=== PATIENT | female | born 1970 | race Caucasian/White ===

== ENCOUNTER 2016-12-07 21:30 | Emergency (ER) | payer BC, MEDICARE ==
--- NOTE | 2016-12-07 21:47 | EDM.PDOC ---
ED HPI GENERAL MEDICAL PROBLEM - General Chief Complaint: Chest Pain Stated Complaint: CHEST PAIN Time Seen by Provider: 12/07/16 21:46 - History of Present Illness INITIAL COMMENTS - FREE TEXT/NARRATIVE: 46-year-old female presents emergency room with chest discomfort. Patient has had this on-and-off for the last 2 weeks. It seems to be getting worse at this time some pain down into her left arm it is not associated with any diaphoresis nausea vomiting or breathing difficulties. Patient had a similar episode like this back in July ultimately she was treated for dyspepsia and did okay she's been off her heartburn medication for several months. She is no prior study of coronary artery disease she has aunts and uncles with coronary disease no primary relatives with coronary artery disease. Mid-Sternal Chest Pain Score (Numeric/FACES): 6 - Related Data Allergies Allergy/AdvReac Type Severity Reaction Status Date / Time No Known Allergies Allergy Verified 07/28/16 09:50 Home Meds: Home Meds Levothyroxine Sodium [Synthroid] 113 mcg PO DAILY 07/25/15 [History] Pravastatin [Pravachol] 10 mg PO BEDTIME 07/25/15 [History] traZODone 50 mg PO BEDTIME 07/25/15 [History] Omeprazole Magnesium [Prilosec Otc] 20 mg PO Q24H #30 tablet. 12/08/16 [Rx] Sucralfate [Carafate] 1 gm PO QIDACANDBED #28 tablet 12/08/16 [Rx] Past Medical History Cardiovascular History: Reports: High Cholesterol, Hypertension Endocrine/Metabolic History: Reports: Hyperthyroidism - Past Surgical History Endocrine Surgical History: Reports: Thyroidectomy Social & Family History - Tobacco Use Smoking Status *Q: Former Smoker Years of Tobacco use: 20 - Caffeine Use Caffeine Use: Reports: Coffee, Energy Drinks, Soda, Tea - Alcohol Use Days Per Week of Alcohol Use: 0 - Recreational Drug Use Recreational Drug Use: No ED ROS GENERAL - Review of Systems Review Of Systems: See Below Constitutional: Reports: No Symptoms HEENT: Reports: No Symptoms Respiratory: Reports: No Symptoms Cardiovascular: Reports: Chest Pain Endocrine: Reports: No Symptoms GI/Abdominal: Reports: Abdominal Pain : Reports: No Symptoms Neurological: Reports: No Symptoms ED EXAM, GENERAL - Physical Exam Exam: See Below Exam Limited By: No Limitations General Appearance: Alert, No Apparent Distress Ears: Normal External Exam, Normal Canal, Hearing Grossly Normal, Normal TMs Nose: Normal Inspection, Normal Mucosa, No Blood Throat/Mouth: Normal Inspection, Normal Lips, Normal Gums, Normal Oropharynx, Normal Voice, No Airway Compromise Head: Atraumatic, Normocephalic Neck: Normal Inspection, Supple, Non-Tender, Full Range of Motion Respiratory/Chest: No Respiratory Distress, Lungs Clear Cardiovascular: Regular Rate, Rhythm, No Edema, No Murmur GI/Abdominal: Normal Bowel Sounds, Soft, Other (Well discomfort in the epigastric region no rebound or guarding noted) Back Exam: Normal Inspection. No: CVA Tenderness (L), CVA Tenderness (R) Extremities: Normal Inspection, No Pedal Edema Course - Vital Signs Last Recorded V/S: Last Vital Signs Temp 36.5 C 12/07/16 21:44 Pulse 69 12/07/16 21:44 Resp 14 12/07/16 21:44 BP 106/68 12/07/16 23:15 Pulse Ox 96 12/07/16 21:44 - Orders/Labs/Meds Orders: Active Orders 24 hr Category Date Time Status EKG 12 Lead [EKG Documentation Completion] [RC] STAT Care 12/07/16 21:39 Active Chest 1V Frontal [CR] Stat Exams 12/07/16 22:00 Taken Lactated Ringers [Ringers, Lactated] 1,000 ml Med 12/07/16 22:00 Active IV ASDIRECTED Medication Orders Lactated Ringer's (Ringers, Lactated) 1,000 mls @ 50 mls/hr IV ASDIRECTED PAYTON Last Admin: 12/07/16 22:41 Dose: 50 mls/hr Labs: Laboratory Tests 12/07/16 12/07/16 12/07/16 Range/Units 22:05 22:05 22:05 WBC 9.22 (3.98-10.04) K/mm3 RBC 4.20 (3.98-5.22) M/mm3 Hgb 11.2 (11.2-15.7) gm/L Hct 35.7 (34.1-44.9) % MCV 85.0 (79.4-94.8) fl MCH 26.7 (25.6-32.2) pg MCHC 31.4 L (32.2-35.5) g/dl RDW Std Deviation 51.8 H (36.4-46.3) fL Plt Count 277 (182-369) K/mm3 MPV 11.4 (9.4-12.3) fl Neutrophils % (Manual) 65 H (40-60) % Band Neutrophils % 0 (0-10) % Lymphocytes % (Manual) 30 (20-40) % Atypical Lymphs % 0 % Monocytes % (Manual) 5 (2-10) % Eosinophils % (Manual) 0 L (0.7-5.8) % Basophils % (Manual) 0 L (0.1-1.2) Platelet Estimate Adequate RBC Morph Comment Normal PT 10.0 (8.0-13.0) SECONDS INR 0.92 APTT 26 (22-36) SECONDS Sodium 141 (136-145) mEq/L Potassium 4.3 (3.5-5.1) mEq/L Chloride 107 (98-107) mEq/L Carbon Dioxide 28 (21-32) mEq/L Anion Gap 10.3 (5-15) BUN 16 (7-18) mg/dL Creatinine 1.0 (0.55-1.02) mg/dL Est Cr Clr Drug Dosing 66.51 mL/min Estimated GFR (MDRD) 60 (>60) mL/min BUN/Creatinine Ratio 16.0 (14-18) Glucose 94 (74-106) mg/dL Calcium 8.6 (8.5-10.1) mg/dL Total Bilirubin 0.1 L (0.2-1.0) mg/dL AST 14 L (15-37) U/L ALT 21 (14-59) U/L Alkaline Phosphatase 67 (46-116) U/L Troponin I < 0.017 (0.00-0.056) ng/mL Total Protein 7.3 (6.4-8.2) g/dl Albumin 3.5 (3.4-5.0) g/dl Globulin 3.8 gm/dL Albumin/Globulin Ratio 0.9 L (1-2) Meds: Medications Generic Name Dose Route Start Last Admin Trade Name Freq PRN Reason Stop Dose Admin Lactated Ringer's 1,000 mls @ 50 mls/hr 12/07/16 22:00 12/07/16 22:41 Ringers, Lactated IV 50 mls/hr ASDIRECTED PAYTON Administration Discontinued Medications Generic Name Dose Route Start Last Admin Trade Name Pavithra PRN Reason Stop Dose Admin Aspirin 324 mg 12/07/16 21:59 12/07/16 22:39 Aspirin PO 12/07/16 22:00 324 mg ONETIME ONE Administration Al Hydroxide/Mg Hydroxide 30 0 ml 12/07/16 23:22 12/07/16 23:28 ml/ Lidocaine HCl 15 ml PO 12/07/16 23:23 45 ml ONETIME ONE Administration Nitroglycerin 0.4 mg 12/07/16 21:59 12/07/16 23:15 Nitrostat SL 12/07/16 22:10 0.4 mg Q5M PRN Administration Chest Pain Pantoprazole Sodium 40 mg 12/08/16 00:14 Protonix PO 12/08/16 00:15 ONETIME ONE Sucralfate 1 gm 12/08/16 00:14 Carafate PO 12/08/16 00:15 ONETIME ONE - Re-Assessments/Exams Free Text/Narrative Re-Assessment/Exam: 12/08/16 00:12 She really had no improvement with the nitroglycerin she had good improvement with the GI cocktail. EKG is is nondiagnostic and unchanged from her prior in July of this year. Chest x-ray is normal laboratory exam is nondiagnostic troponin negative. Her heart score is 2 she does not want to stay for a second troponin, however this was offered and she would like to go home. Departure - Departure Time of Disposition: 00:14 Disposition: Home, Self-Care 01 Clinical Impression: Chest pain, Dyspepsia Prescriptions: Omeprazole Magnesium [Prilosec Otc] 20 mg PO Q24H #30 tablet.dr Riderfarobert [Carafate] 1 gm PO QIDACANDBED #28 tablet Instructions: Nonspecific Chest Pain, [id number] Referrals: Mike Bucio MD [Primary Care Provider] - Forms: ED Department Discharge Additional Instructions: Return to the emergency room with any questions or problems. Followup with your regular physician later this week to discuss benefits of getting a cardiac stress test. You been started on 2 medications for your stomach the Carafate you'll take for one week take it before meals breakfast lunch and supper, and at bedtime. Take your other medications at least an hour before or 2 hours after the Carafate. - My Orders Last 24 Hours: My Active Orders 12/07/16 21:39 EKG 12 Lead [EKG Documentation Completion] [RC] STAT 12/07/16 22:00 Chest 1V Frontal [CR] Stat Lactated Ringers [Ringers, Lactated] 1,000 ml IV ASDIRECTED - Assessment/Plan Last 24 Hours: My Active Orders 12/07/16 21:39 EKG 12 Lead [EKG Documentation Completion] [RC] STAT 12/07/16 22:00 Chest 1V Frontal [CR] Stat Lactated Ringers [Ringers, Lactated] 1,000 ml IV ASDIRECTED
[2016-12-07] MEDS ORDERED: Aspirin 81 MG Tab.Chew PO ONE (21:59)
[2016-12-07] MEDS ORDERED: Lactated Ringers 1,000 ML IV SCH (22:00)
[2016-12-07] MEDS: Nitroglycerin 0.4 MG Tab.SL SL PRN ×3 (22:41→23:15)
[2016-12-07 23:15] VITALS: BP 106/68
[2016-12-07] MEDS ORDERED: Alum Hydrox/Mag Hydrox/Simeth 30 ML, Lidocaine 2% 15 ML PO ONE ×2 (23:22)
[2016-12-08] MEDS ORDERED: Sucralfate 1 GM Tab PO ONE (00:14)
[2016-12-08] MEDS ORDERED: Pantoprazole 40 MG Tab.CR PO ONE (00:14)
[2016-12-08] MEDS ORDERED: Sucralfate Suspension 1 GM/10 ML Cup PO ONE (00:23)
--- NOTE | 2016-12-08 07:24 | CR ---
Chest: Portable view of the chest was obtained. Comparison: Previous chest x-ray 07/28/16. Heart size and mediastinum are normal. Lungs are clear. Surgical clips are noted at the base of the neck. Bony structures are grossly intact. Impression: 1. Stable chest x-ray from prior exam. Nothing acute is identified. Diagnostic code #2
== END 2016-12-08 00:30 | disposition home or self-care (01) ==
LOC: JD.ED 21:30
DX: R07.89 Other chest pain (principal); R10.13 Epigastric pain; E78.00 Pure hypercholesterolemia, unspecified; I10 Essential (primary) hypertension; E05.90 Thyrotoxicosis, unspecified without thyrotoxic crisis or storm; Z79.899 Other long term (current) drug therapy; Z90.89 Acquired absence of other organs; Z87.891 Personal history of nicotine dependence
CPT/HCPCS: 36415; 71010; 80053; 84484; 85025; 85610; 85730; 93005; 96360; 96361; 99285; A9270; J7120; 99284

== ENCOUNTER 2017-09-26 15:44 | Emergency (ER) | payer BC, MEDICARE ==
[2017-09-26 15:54] VITALS: BP 115/79
[2017-09-26] MEDS ORDERED: oxyCODONE 5 MG Tab PO ONE (16:12)
--- NOTE | 2017-09-26 16:16 | EDM.PDOC ---
ED HPI GENERAL MEDICAL PROBLEM - General Chief Complaint: ENT Problem Stated Complaint: PAIN IN LEFT EAR Time Seen by Provider: 09/26/17 15:57 Source of Information: Reports: Patient History Limitations: Reports: No Limitations - History of Present Illness INITIAL COMMENTS - FREE TEXT/NARRATIVE: 47 y/o F with L ear pain x 1 week. No injury. No q tip use, foreign body in the ear, or recent swimming. Has had swelling of the ear and severe pain. No ear discharge. No fever. No recent nasal congestion or cough or other illness. Pain is severe. left ear Pain Score (Numeric/FACES): 6 - Related Data Allergies Allergy/AdvReac Type Severity Reaction Status Date / Time No Known Allergies Allergy Verified 09/26/17 15:54 Home Meds: Home Meds Levothyroxine Sodium [Synthroid] 113 mcg PO DAILY 07/25/15 [History] Pravastatin [Pravachol] 10 mg PO BEDTIME 07/25/15 [History] traZODone 50 mg PO BEDTIME 07/25/15 [History] Ciprofloxacin/Hydrocortisone [Cipro HC Otic Susp] 3 drop OT BID 14 Days #1 bottle 09/26/17 [Rx] Clindamycin HCl 150 mg PO QID #28 capsule 09/26/17 [Rx] Past Medical History - Past Health History Medical/Surgical History: Denies Medical/Surgical History Cardiovascular History: Reports: High Cholesterol, Hypertension Endocrine/Metabolic History: Reports: Hyperthyroidism - Past Surgical History Endocrine Surgical History: Reports: Thyroidectomy Social & Family History - Family History Family Medical History: Noncontributory Cardiac: Reports: [place] - Tobacco Use Smoking Status *Q: Never Smoker Years of Tobacco use: 20 Used Tobacco, but Quit: Yes Month/Year Tobacco Last Used: 1 Second Hand Smoke Exposure: Yes - Caffeine Use Caffeine Use: Reports: Coffee - Alcohol Use Days Per Week of Alcohol Use: 0 - Recreational Drug Use Recreational Drug Use: No ED ROS ENT - Review of Systems Review Of Systems: See Below Constitutional: Denies: Fever HEENT: Reports: Ear Pain. Denies: Ear Discharge, Rhinitis Respiratory: Denies: Cough Skin: Denies: Wound Neurological: Denies: Headache ED EXAM, ENT - Physical Exam Exam: See Below Exam Limited By: No Limitations General Appearance: Alert, WD/WN, No Apparent Distress Eye Exam: Bilateral Eye: Normal Inspection Ears: Other (L ear: no mastoid tenderness or erythema. No tenderness with pinna movements. Mild erythema and swelling of the pinna at site of the external auditory canal. No discharge. External auditory canal is swollen and mildly erythematous. No visible debris in the canal. Canal swelling obscures the TM. ) Nose: Normal Inspection, Normal Mucousa, No Blood Mouth/Throat: Normal Inspection Head: Atraumatic, Normocephalic Neck: Normal Inspection, Supple Respiratory/Chest: No Respiratory Distress Neurological: Alert, Oriented, Normal Cognition Psychiatric: Normal Affect, Normal Mood Course - Vital Signs Last Recorded V/S: Last Vital Signs Temp 36.6 C 09/26/17 15:49 Pulse 73 09/26/17 15:49 Resp 18 09/26/17 15:49 BP 115/79 09/26/17 15:49 Pulse Ox 100 09/26/17 15:49 - Orders/Labs/Meds Meds: Medications Discontinued Medications Generic Name Dose Route Start Last Admin Trade Name Freq PRN Reason Stop Dose Admin Oxycodone HCl 5 mg 09/26/17 16:12 09/26/17 16:29 Oxycodone PO 09/26/17 16:13 5 mg ONETIME ONE Administration Departure - Departure Time of Disposition: 16:12 Disposition: Home, Self-Care 01 Clinical Impression: Otitis externa Qualifiers: Otitis externa type: diffuse Chronicity: acute Laterality: left Qualified Code( s): H60.312 - Diffuse otitis externa, left ear Cellulitis Qualifiers: Site of cellulitis: other site Qualified Code(s): L03.818 - Cellulitis of other sites - Discharge Information Prescriptions: Ciprofloxacin/Hydrocortisone [Cipro HC Otic Susp] 3 drop OT BID 14 Days #1 bottle Clindamycin HCl 150 mg PO QID #28 capsule Instructions: Cellulitis, Adult Referrals: PCP,None [Primary Care Provider] - Forms: ED Department Discharge Additional Instructions: 1. Take antibiotics as prescribed 2. Take aleve or ibuprofen as needed for pain. You may take acetaminophen ( Tylenol) in addition to this. 3. Follow up with your primary doctor this week or the walk in clinic if not improving 4. Return to the ED for worsening symptoms, including fever or severe pain
== END 2017-09-26 16:30 | disposition home or self-care (01) ==
LOC: JD.ED 15:44
DX: H60.312 Diffuse otitis externa, left ear (principal); H60.12 Cellulitis of left external ear; E78.00 Pure hypercholesterolemia, unspecified; E05.90 Thyrotoxicosis, unspecified without thyrotoxic crisis or storm; I10 Essential (primary) hypertension; Z79.899 Other long term (current) drug therapy
CPT/HCPCS: 99283; A9270

== ENCOUNTER 2018-01-24 20:45 | Emergency (ER) | payer BC, MEDICARE ==
[2018-01-24 21:09] VITALS: BP 133/89
--- NOTE | 2018-01-24 22:58 | EDM.PDOC ---
ED HPI GENERAL MEDICAL PROBLEM - General Chief Complaint: ENT Problem Stated Complaint: MASS ON LEFT SIDE OF THROAT Time Seen by Provider: 01/24/18 21:21 Source of Information: Reports: Patient, Family () History Limitations: Reports: No Limitations - History of Present Illness INITIAL COMMENTS - FREE TEXT/NARRATIVE: The patient states that she feels like there has been a lump in the left side of her throat for about 2 weeks, that it is painful, and getting worse. She noticed a white spot in the back of her throat tonight. No recent fever. No ear pain. No recent nausea, vomiting, constipation, or diarrhea. No prior similar symptoms. No medical evaluation for this complaint, prior to tonight. The patient's PCP is Dr. Bucio. Throat Pain Score (Numeric/FACES): 8 - Related Data Allergies Allergy/AdvReac Type Severity Reaction Status Date / Time No Known Allergies Allergy Verified 01/24/18 21:09 Home Meds: Home Meds Levothyroxine Sodium [Synthroid] 113 mcg PO DAILY 07/25/15 [History] Pravastatin [Pravachol] 10 mg PO BEDTIME 07/25/15 [History] traZODone 50 mg PO BEDTIME 07/25/15 [History] Past Medical History Cardiovascular History: Reports: High Cholesterol, Hypertension Endocrine/Metabolic History: Reports: Hypothyroidism - Past Surgical History Endocrine Surgical History: Reports: Thyroidectomy Social & Family History - Family History Family Medical History: Noncontributory Cardiac: Reports: [place] - Tobacco Use Smoking Status *Q: Former Smoker Years of Tobacco use: 27 Packs/Tins Daily: 0.5 Month/Year Tobacco Last Used: Quit 2014 - Caffeine Use Caffeine Use: Reports: None - Alcohol Use Alcohol Use History: Yes Alcohol Use Frequency: Socially - Recreational Drug Use Recreational Drug Use: No - Living Situation & Occupation Living situation: Reports: , with Spouse, with Family (Daughter, 3 grandchildren) Occupation: Unemployed ED ROS ENT - Review of Systems Review Of Systems: ROS reveals no pertinent complaints other than HPI. ED EXAM, ENT - Physical Exam Exam: See Below Exam Limited By: No Limitations General Appearance: Alert, WD/WN, No Apparent Distress Eye Exam: Bilateral Eye: EOMI, Normal Inspection Ears: Normal External Exam, Normal Canal, Hearing Grossly Normal, Normal TMs Nose: Normal Inspection, No Blood, Other (Left nostril nasal mucosa edema) Mouth/Throat: Normal Gums, Normal Lips, Normal Teeth, Other (Glossy white bulging lesion noted on the left peritonsillar oropharynx. No surrounding erythema. No oropharyngeal swelling. No uvular swelling or deviation.) Head: Atraumatic, Normocephalic Neck: Normal Inspection, Supple, Non-Tender, Full Range of Motion. No: Lymphadenopathy (L), Lymphadenopathy (R) Course - Vital Signs Last Recorded V/S: Last Vital Signs Temp 36.5 C 01/24/18 21:05 Pulse 60 01/24/18 21:05 Resp 16 01/24/18 21:05 BP 133/89 01/24/18 21:05 Pulse Ox 98 01/24/18 21:05 - Orders/Labs/Meds Orders: Active Orders 24 hr Category Date Time Status CULTURE STREP A CONFIRMATION [] Stat Lab 01/24/18 22:12 Results STREP SCRN A RAPID W CULT CONF [] Stat Lab 01/24/18 22:12 Results - Re-Assessments/Exams Free Text/Narrative Re-Assessment/Exam: 01/24/18 22:51 Test results discussed with the patient and her . The rapid strep test is negative. Based on the appearance of the white lesion on the patient's left oropharynx, with the lack of surrounding swelling or erythema to suggest an infection, and with no lymphadenopathy, I suspect that the patient has a mucous retention cyst. These are not cancerous, I do not need to be treated unless they are causing symptoms. I will refer the patient to the ENT Dr. Chun Etienne for further evaluation and potential treatment. Departure - Departure Time of Disposition: 22:52 Disposition: Home, Self-Care 01 Condition: Good Clinical Impression: Mucous retention cyst - Discharge Information *PRESCRIPTION DRUG MONITORING PROGRAM REVIEWED*: Not Applicable *COPY OF PRESCRIPTION DRUG MONITORING REPORT IN PATIENT JAIME: Not Applicable Referrals: Mike Bucio MD [Primary Care Provider] - Chun Etienne MD [Ordering Only Provider] - Forms: ED Department Discharge Additional Instructions: You were seen in the emergency room for left throat pain for the past 2 weeks, and a white lesions seen in your throat. Workup in the ER included a rapid strep test, which returned negative. Based on your history and physical examination, we suspect that you are suffering from a mucus retention cyst. Take [id number] ibuprofen, 2-3 tablets (400-600 mg) every 8 hours, with food, as needed for discomfort. Follow-up with the ENT Dr. Chun Etienne at the next available appointment. If any other problems, please do not hesitate to return to the ER. - My Orders Last 24 Hours: My Active Orders 01/24/18 22:12 CULTURE STREP A CONFIRMATION [RM] Stat STREP SCRN A RAPID W CULT CONF [RM] Stat - Assessment/Plan Last 24 Hours: My Active Orders 01/24/18 22:12 CULTURE STREP A CONFIRMATION [RM] Stat STREP SCRN A RAPID W CULT CONF [RM] Stat
== END 2018-01-24 23:01 | disposition home or self-care (01) ==
LOC: JD.ED 20:45
DX: J34.1 Cyst and mucocele of nose and nasal sinus (principal); E78.00 Pure hypercholesterolemia, unspecified; I10 Essential (primary) hypertension; E03.9 Hypothyroidism, unspecified; Z87.891 Personal history of nicotine dependence; Z79.899 Other long term (current) drug therapy
CPT/HCPCS: 87081; 87430; 99283

== ENCOUNTER 2018-07-23 17:41 | Emergency (ER) | payer BC, OTHER ==
[2018-07-23 17:54] VITALS: BP 133/95
[2018-07-23] MEDS ORDERED: Ketorolac 60 MG/2 ML SDV IM ONE (18:48)
--- NOTE | 2018-07-23 19:04 | EDM.PDOC ---
ED HPI GENERAL MEDICAL PROBLEM - General Chief Complaint: Upper Extremity Injury/Pain Stated Complaint: JOINT PAIN Time Seen by Provider: 07/23/18 18:35 Source of Information: Reports: Patient History Limitations: Reports: No Limitations - History of Present Illness INITIAL COMMENTS - FREE TEXT/NARRATIVE: 47 year old female presents for evaluation and treatment of pain to multiple joints. Reports pain for the last month to month and a half. Reports pain primarily to the left shoulder, PIP joints of the hands and low back. Denies any pain to the elbows, hips, knees or ankles. No recent fevers, chills, nausea or vomiting. No recent trauma to the joints. Has not appreciated any recent skin rashes or skin changes. No history of gout known. Patient has appreciated nodules to several PIP joints in the hands. Reports swelling in several joints and states she has not been able to wear her rings due to swelling in her fingers. Denies any erythema or increased warmth to the joints. Has not been seen for her joint pain. Has been treating pain with OTC medications but has not gotten any relief. Patient reports she is on disability for an Arnold Chiari malformation. joints Pain Score (Numeric/FACES): 5 - Related Data Allergies Allergy/AdvReac Type Severity Reaction Status Date / Time No Known Allergies Allergy Verified 01/24/18 21:09 Home Meds: Home Meds Levothyroxine Sodium [Synthroid] 125 mcg PO DAILY 07/25/15 [History] Pravastatin [Pravachol] 10 mg PO BEDTIME 07/25/15 [History] traZODone 100 mg PO BEDTIME 07/25/15 [History] predniSONE [Prednisone] 20 mg PO DAILY #11 tablet 07/23/18 [Rx] Past Medical History - Past Health History Medical/Surgical History: Denies Medical/Surgical History Cardiovascular History: Reports: High Cholesterol [employer] History: Reports: Endocrine/Metabolic History: Reports: Hypothyroidism - Past Surgical History Endocrine Surgical History: Reports: Thyroidectomy Social & Family History - Family History Family Medical History: Noncontributory Cardiac: Reports: [place] Musculoskeletal: Reports: RA Other Musculoskeletal Family History: mother-RA - Tobacco Use Smoking Status *Q: Former Smoker Used Tobacco, but Quit: Yes Month/Year Tobacco Last Used: 2015 - Caffeine Use Caffeine Use: Reports: Coffee, Soda Other Caffeine Use: rare - Recreational Drug Use Recreational Drug Use: No - Living Situation & Occupation Living situation: Reports: , with Spouse, with Family (Daughter, 3 grandchildren) Occupation: Unemployed Review of Systems - Review of Systems Review Of Systems: See Below Constitutional: Denies: Chills, Fever GI/Abdominal: Denies: Nausea, Vomiting Musculoskeletal: Reports: Back Pain (reports low back pain), Joint Pain ( multiple joints including the left shoulder and PIP joints of the hands ), Joint Swelling (mulitple joints primarily in the hands) Skin: Denies: Rash, Erythema ED EXAM, GENERAL - Physical Exam Exam: See Below Exam Limited By: No Limitations General Appearance: Alert, WD/WN, No Apparent Distress Throat/Mouth: Normal Inspection Neck: Normal Inspection Respiratory/Chest: No Respiratory Distress, Lungs Clear, Normal Breath Sounds Cardiovascular: Normal Peripheral Pulses, Regular Rate, Rhythm, No Murmur Extremities: Normal Inspection (no obvious deformities to the shoulders, knees, hands, wrist or ankles), Non-Tender, Other (bouchards nodules to several PIP joints in the left hand ). No: Increased Warmth, Redness Neurological: Alert, Oriented, Normal Cognition Psychiatric: Normal Affect, Normal Mood Skin Exam: Warm, Dry, Normal Color, No Rash. No: Increased Warmth Course - Vital Signs Last Recorded V/S: Last Vital Signs Temp 98.5 F 07/23/18 17:50 Pulse 85 07/23/18 17:50 Resp 16 07/23/18 17:50 BP 133/95 H 07/23/18 17:50 Pulse Ox 95 07/23/18 17:50 - Orders/Labs/Meds Meds: Medications Discontinued Medications Generic Name Dose Route Start Last Admin Trade Name Pavithra PRN Reason Stop Dose Admin Ketorolac Tromethamine 60 mg 07/23/18 18:48 07/23/18 18:57 Toradol IM 07/23/18 18:49 60 mg ONETIME ONE Administration - Re-Assessments/Exams Free Text/Narrative Re-Assessment/Exam: 07/23/18 18:55 Suspect arthritis causing her joint pain. Possibly RA. Reports mother has a history of RA. I see no acute joint swelling, erythema and increased warmth to the joints tonight. Nodule appreciated to the PIP joints. Will discharge home with recommendations to follow-up in the clinic for further evaluation. Discharge instructions as documented. Departure - Departure Time of Disposition: 18:55 Disposition: Home, Self-Care 01 Condition: Fair Clinical Impression: Arthritis - Discharge Information *PRESCRIPTION DRUG MONITORING PROGRAM REVIEWED*: No *COPY OF PRESCRIPTION DRUG MONITORING REPORT IN PATIENT JAIME: No Prescriptions: predniSONE [Prednisone] 20 mg PO DAILY #11 tablet Instructions: Arthritis Referrals: Mike Bucio MD [Primary Care Provider] - Forms: ED Department Discharge Additional Instructions: Follow-up with your PCP. You may require further testing such as lab work to confirm a diagnosis. Take the prednisone as prescribed. This medication will be tapered off. May take OTC aleve or tylenol as needed for pain relief in addition to the steroid. Please return to the ER should your symptoms change or worsen.
== END 2018-07-23 19:15 | disposition home or self-care (01) ==
LOC: JD.ED 17:41
DX: M19.90 Unspecified osteoarthritis, unspecified site (principal); E03.9 Hypothyroidism, unspecified; E78.00 Pure hypercholesterolemia, unspecified; Z87.891 Personal history of nicotine dependence; Z79.899 Other long term (current) drug therapy
CPT/HCPCS: 96372; 99283; J1885

== ENCOUNTER 2019-07-29 14:17 | Emergency (ER) | payer MEDICARE, OTHER ==
[2019-07-29 14:44] VITALS: BP 132/90; PULSE 67
[2019-07-29] MEDS ORDERED: Sodium Chloride 0.9% 10 ML Syringe FLUSH PRN (14:46)
[2019-07-29] MEDS ORDERED: diphenhydrAMINE 50 MG/ML SDV IVPUSH ONE (14:46)
[2019-07-29] MEDS ORDERED: Sodium Chloride 0.9% 1,000 ML IV ONE (14:46)
[2019-07-29] MEDS ORDERED: Metoclopramide 10 MG/2 ML SDV IVPUSH ONE (14:46)
--- NOTE | 2019-07-29 14:51 | EDM.PDOC ---
ED HPI GENERAL MEDICAL PROBLEM - General Chief Complaint: Headache Stated Complaint: HEADACHE Time Seen by Provider: 07/29/19 14:39 Source of Information: Reports: Patient History Limitations: Reports: No Limitations - History of Present Illness INITIAL COMMENTS - FREE TEXT/NARRATIVE: Patient is unfortunate 48-year-old female who presents emergency Department today with complaint of headache. Patient reports she has a headache that "feels like my brain is done explode". The symptoms started 3 days ago and progressively worsened since. Patient reports the pain is "similar to previous headaches". Positive nausea positive vomiting positive photophobia. Patient reports she has had cough congestion runny nose for the past week and was seen at the urgent care at the beginning of the week and was placed on Zithromax and Robitussin with codeine. Patient then had a rash and was told to discontinue the Robitussin with codeine in the Zithromax and was placed on doxycycline. Patient reports cough congestion runny nose has improved however, the headache has worsened Headache Pain Score (Numeric/FACES): 10 - Related Data Allergies Allergy/AdvReac Type Severity Reaction Status Date / Time codeine Allergy Rash Verified 07/29/19 14:44 Home Meds: Home Meds Levothyroxine Sodium [Synthroid] 125 mcg PO DAILY 07/25/15 [History] Pravastatin [Pravachol] 10 mg PO BEDTIME 07/25/15 [History] traZODone 100 mg PO BEDTIME 07/25/15 [History] predniSONE [Prednisone] 20 mg PO DAILY #11 tablet 07/23/18 [Rx] Past Medical History - Past Health History Medical/Surgical History: Denies Medical/Surgical History Cardiovascular History: Reports: High Cholesterol 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: Endocrine/Metabolic History: Reports: Hypothyroidism - Past Surgical History Endocrine Surgical History: Reports: Thyroidectomy Social & Family History - Family History Family Medical History: Noncontributory Cardiac: Reports: [place] Musculoskeletal: Reports: RA Other Musculoskeletal Family History: mother-RA - Caffeine Use Caffeine Use: Reports: Coffee, Soda Other Caffeine Use: rare - Living Situation & Occupation Living situation: Reports: , with Spouse, with Family (Daughter, 3 grandchildren) Occupation: Unemployed ED ROS GENERAL - Review of Systems Review Of Systems: See Below Constitutional: Denies: Fever, Chills HEENT: Reports: Rhinitis. Denies: Ear Pain, Throat Pain Respiratory: Reports: Cough. Denies: Shortness of Breath, Wheezing, Sputum Cardiovascular: Denies: Chest Pain GI/Abdominal: Reports: Nausea, Vomiting. Denies: Abdominal Pain Neurological: Reports: Headache. Denies: Confusion, Dizziness - Physical Exam Exam: See Below Exam Limited By: No Limitations General Appearance: Alert, WD/WN, Moderate Distress Eye Exam: Bilateral Eye: EOMI, PERRL Ears: Normal External Exam, Normal Canal, Hearing Grossly Normal, Normal TMs Head Exam: Atraumatic, Normocephalic Neck: Normal Inspection, Supple, Non-Tender, Full Range of Motion Respiratory/Chest: No Respiratory Distress, Lungs Clear, Normal Breath Sounds, No Accessory Muscle Use, Chest Non-Tender Cardiovascular: Normal Peripheral Pulses, Regular Rate, Rhythm, No Edema, No Gallop, No JVD, No Murmur, No Rub GI/Abdominal: Normal Bowel Sounds, Soft, Non-Tender, No Organomegaly, No Distention, No Abnormal Bruit, No Mass Neuro Exam (Abbreviated): Alert, Oriented, CN II-XII Intact, Normal Cognition, Normal Gait, Normal Reflexes, No Motor/Sensory Deficits Back Exam: Normal Inspection, Full Range of Motion, NT Extremities: Normal Inspection, Normal Range of Motion, Non-Tender, No Pedal Edema, Normal Capillary Refill Skin Exam: Warm, Dry Course - Vital Signs Last Recorded V/S: Last Vital Signs Temp 97.8 F 07/29/19 14:40 Pulse 67 07/29/19 14:40 Resp 16 07/29/19 14:40 BP 132/90 07/29/19 14:40 Pulse Ox 98 07/29/19 14:40 - Orders/Labs/Meds Orders: Active Orders 24 hr Category Date Time Status Sodium Chloride 0.9% [Saline Flush] Med 07/29/19 14:46 Active 10 ml FLUSH ASDIRECTED PRN Saline Lock Insert [OM.PC] Stat Oth 07/29/19 14:46 Ordered Medication Orders Sodium Chloride (Saline Flush) 10 ml FLUSH ASDIRECTED PRN PRN Reason: Keep Vein Open Last Admin: 07/29/19 14:58 Dose: 10 ml Meds: Medications Generic Name Dose Route Start Last Admin Trade Name Freq PRN Reason Stop Dose Admin Sodium Chloride 10 ml 07/29/19 14:46 07/29/19 14:58 Saline Flush FLUSH 10 ml ASDIRECTED PRN Administration Keep Vein Open Discontinued Medications Generic Name Dose Route Start Last Admin Trade Name Freq PRN Reason Stop Dose Admin Diphenhydramine HCl 25 mg 07/29/19 14:46 07/29/19 14:57 Benadryl IVPUSH 07/29/19 14:47 25 mg ONETIME ONE Administration Haloperidol Lactate 2.5 mg 07/29/19 15:13 07/29/19 15:25 Haldol IVPUSH 07/29/19 15:14 2.5 mg ONETIME ONE Administration Sodium Chloride 1,000 mls @ 1,000 mls/hr 07/29/19 14:46 07/29/19 14:56 Normal Saline IV 07/29/19 15:45 1,000 mls/hr ONETIME ONE Administration Metoclopramide HCl 10 mg 07/29/19 14:46 07/29/19 14:56 Reglan IVPUSH 07/29/19 14:47 10 mg ONETIME ONE Administration - Re-Assessments/Exams Free Text/Narrative Re-Assessment/Exam: 07/29/19 15:12 After Reglan and Benadryl patient continues to have headache, we will give Haldol to disassociate the pain Free Text/Narrative Re-Assessment/Exam: 07/29/19 15:47 Patient reports pain is resolved after Haldol will discharge to home Departure - Departure Time of Disposition: 15:47 Disposition: Home, Self-Care 01 Condition: Good, Fair Clinical Impression: Migraine - Discharge Information Referrals: Mike Bucio MD [Primary Care Provider] - Forms: ED Department Discharge Additional Instructions: Home, rest in a dark quiet room, return as needed for worsening condition Sepsis Event Note - Evaluation Sepsis Screening Result: No Definite Risk - Focused Exam Vital Signs: Vital Signs Temp Pulse Resp BP Pulse Ox 07/29/19 14:40 97.8 F 67 16 132/90 98 Date Exam was Performed: 07/29/19 Time Exam was Performed: 15:47 - My Orders Last 24 Hours: My Active Orders 07/29/19 14:46 Sodium Chloride 0.9% [Saline Flush] 10 ml FLUSH ASDIRECTED PRN Saline Lock Insert [OM.PC] Stat - Assessment/Plan Last 24 Hours: My Active Orders 07/29/19 14:46 Sodium Chloride 0.9% [Saline Flush] 10 ml FLUSH ASDIRECTED PRN Saline Lock Insert [OM.PC] Stat
[2019-07-29] MEDS ORDERED: Haloperidol Lactate 5 MG/ML SDV IVPUSH ONE (15:13)
== END 2019-07-29 15:58 | disposition home or self-care (01) ==
LOC: JD.ED 14:17
DX: G43.909 Migraine, unspecified, not intractable, without status migrainosus (principal); E78.00 Pure hypercholesterolemia, unspecified; E03.9 Hypothyroidism, unspecified; Z88.5 Allergy status to narcotic agent; Z79.899 Other long term (current) drug therapy
CPT/HCPCS: 96361; 96374; 96375; 99283; J1200; J1630; J2765; J7030

== ENCOUNTER 2019-09-14 18:44 | Emergency (ER) | payer OTHER ==
--- NOTE | 2019-09-14 19:51 | EDM.PDOC ---
ED HPI GENERAL MEDICAL PROBLEM - General Chief Complaint: Upper Extremity Injury/Pain Stated Complaint: INJURED LEFT ARM Time Seen by Provider: 09/14/19 19:08 Source of Information: Reports: Patient History Limitations: Reports: No Limitations - History of Present Illness INITIAL COMMENTS - FREE TEXT/NARRATIVE: Patient is a 49-year-old female who presents with complaints of left shoulder pain after slipping on the ice this morning. Patient states that she fell on the shoulder. Her arm was not extended outward as to catch herself. She has been able to move the shoulder since the time of the injury, however it is painful. She does have a history of chronic pain in that shoulder and does receive steroid injections for the pain. Her last injection was approximately 2 weeks ago and was done at [facility] in [place]. She is unsure of the orthopedist name who did the injection. Denies any numbness or tingling down her left arm. Treatments PRESS CLIPPER: Reports: Cold Therapy, NSAIDS Left Shoulder Pain Score (Numeric/FACES): 5 - Related Data Allergies Allergy/AdvReac Type Severity Reaction Status Date / Time codeine Allergy Rash Verified 09/14/19 19:07 Home Meds: Home Meds Levothyroxine Sodium [Synthroid] 150 mcg PO DAILY 07/25/15 [History] Pravastatin [Pravachol] 10 mg PO BEDTIME 07/25/15 [History] traZODone 100 mg PO BEDTIME 07/25/15 [History] predniSONE [Prednisone] 20 mg PO DAILY #11 tablet 07/23/18 [Rx] Past Medical History - Past Health History Medical/Surgical History: Denies Medical/Surgical History Cardiovascular History: Reports: High Cholesterol 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: Endocrine/Metabolic History: Reports: Hypothyroidism - Past Surgical History Endocrine Surgical History: Reports: Thyroidectomy Social & Family History - Family History Family Medical History: Noncontributory Cardiac: Reports: MD Musculoskeletal: Reports: RA Other Musculoskeletal Family History: mother-RA - Tobacco Use Smoking Status *Q: Never Smoker Second Hand Smoke Exposure: No - Caffeine Use Caffeine Use: Reports: None Other Caffeine Use: rare - Recreational Drug Use Recreational Drug Use: No - Living Situation & Occupation Living situation: Reports: , with Spouse, with Family (Daughter, 3 grandchildren) Occupation: Unemployed Review of Systems - Review of Systems Review Of Systems: Comprehensive ROS is negative, except as noted in HPI. ED EXAM, GENERAL - Physical Exam Exam: See Below Exam Limited By: No Limitations General Appearance: Alert, WD/WN, No Apparent Distress Respiratory/Chest: No Respiratory Distress, Lungs Clear, Normal Breath Sounds, No Accessory Muscle Use, Chest Non-Tender Cardiovascular: Normal Peripheral Pulses, Regular Rate, Rhythm, No Edema, No Gallop, No JVD, No Murmur, No Rub Extremities: Normal Inspection, Normal Range of Motion, No Pedal Edema, Normal Capillary Refill, Other (Tenderness to palpation over the AC joint. No edema, ecchymosis or obvious deformity noted.) Neurological: Alert, Oriented, CN II-XII Intact, Normal Cognition, Normal Gait, Normal Reflexes, No Motor/Sensory Deficits Psychiatric: Normal Affect, Normal Mood Skin Exam: Warm, Dry, Intact, Normal Color, No Rash Course - Orders/Labs/Meds Orders: Active Orders 24 hr Category Date Time Status Shoulder Comp Lt [CR] Stat Exams 09/14/19 19:18 Taken - Re-Assessments/Exams Free Text/Narrative Re-Assessment/Exam: 09/14/19 19:49 X-ray was negative for any acute fractures. Patient will be provided with a arm sling for comfort. Discharge instructions documented. Departure - Departure Time of Disposition: 19:49 Disposition: Home, Self-Care 01 Condition: Fair Clinical Impression: Contusion of shoulder, left Qualifiers: Encounter type: initial encounter Qualified Code(s): S40.012A - Contusion of left shoulder, initial encounter - Discharge Information *PRESCRIPTION DRUG MONITORING PROGRAM REVIEWED*: No *COPY OF PRESCRIPTION DRUG MONITORING REPORT IN PATIENT JAIME: No Instructions: Contusion, [id number] Referrals: Mike Bucio MD [Primary Care Provider] - Additional Instructions: You were seen in the emergency department today for left shoulder pain after falling on the ice. X-ray was done of your shoulder and showed no signs of acute fracture. You have been provided with a arm sling for comfort. As we discussed, ensure that she did not wear this for more than a couple days as increases your risk of a "frozen shoulder ". I do recommend that over the next couple days you remove your arm from the sling periodically and do range of motion exercises to keep the joint loose. I would also recommend that you apply ice to the joint for 20 minutes every 2 hours. You may use over-the- counter Tylenol or ibuprofen as needed for any discomfort. If after 1 week you continue to have pain in the shoulder, I would recommend that you follow-up with your orthopedist. If you experience any worsening symptoms, please not hesitate to return to the emergency department. Sepsis Event Note - Evaluation Sepsis Screening Result: No Definite Risk - My Orders Last 24 Hours: My Active Orders 09/14/19 19:18 Shoulder Comp Lt [CR] Stat - Assessment/Plan Last 24 Hours: My Active Orders 09/14/19 19:18 Shoulder Comp Lt [CR] Stat
[2019-09-14 20:26] VITALS: BP 119/83; PULSE 64
--- NOTE | 2019-09-15 07:22 | CR ---
Left shoulder: Three views of the left shoulder were obtained. Comparison: No previous left shoulder study. Minimal degenerative change is noted within the acromioclavicular joint with slight sclerosis and small cysts. Glenohumeral joint appears within normal limits. No acute fracture, dislocation or other bony abnormality is seen. Surgical clips are seen at the base of the neck. Impression: 1. Findings as noted above. 2. Nothing acute is seen on left shoulder study. Diagnostic code #2 This report was dictated in [place] Standard Time
== END 2019-09-14 20:15 | disposition home or self-care (01) ==
LOC: JD.ED 18:44
DX: S40.012A Contusion of left shoulder, initial encounter (principal); Z88.5 Allergy status to narcotic agent; E03.9 Hypothyroidism, unspecified; Z79.899 Other long term (current) drug therapy; W00.0XXA Fall on same level due to ice and snow, initial encounter
CPT/HCPCS: 73030-26-LT; 73030-LT; 99282; 99283-25

== ENCOUNTER 2021-08-15 11:45 | Emergency (ER) | payer MEDICAID ==
[2021-08-15] MEDS ORDERED: LORazepam 2 MG/ML SDV IM ONE (12:33)
[2021-08-15 14:12] VITALS: BP 138/84; PULSE 74
== END 2021-08-15 14:12 | disposition home or self-care (01) ==
LOC: JD.ED 11:45
DX: R51.9 Headache, unspecified (principal); M54.2 Cervicalgia; E78.00 Pure hypercholesterolemia, unspecified; E03.9 Hypothyroidism, unspecified; Z88.5 Allergy status to narcotic agent; Z79.899 Other long term (current) drug therapy
CPT/HCPCS: 70450; 72125; 96372; 99284; J2060

== ENCOUNTER 2021-10-30 17:15 | Emergency (ER) | payer SELFPAY ==
[2021-10-30 17:25] VITALS: BP 135/90; PULSE 84
== END 2021-10-30 18:59 | disposition home or self-care (01) ==
LOC: JD.ED 17:15
DX: R41.89 Other symptoms and signs involving cognitive functions and awareness (principal); E03.9 Hypothyroidism, unspecified; E78.00 Pure hypercholesterolemia, unspecified; Z79.899 Other long term (current) drug therapy; Z88.5 Allergy status to narcotic agent
CPT/HCPCS: 36415; 70450; 70450-26; 80053; 83735; 84443; 85025; 99283; 99284-25

== ENCOUNTER 2021-11-02 16:15 | Emergency (ER) | payer BC, MEDICAID ==
[2021-11-02 17:10] VITALS: BP 151/86; PULSE 69
== END 2021-11-02 19:35 | disposition home or self-care (01) ==
LOC: JD.ED 16:15
DX: R53.81 Other malaise (principal); R53.83 Other fatigue; E78.00 Pure hypercholesterolemia, unspecified; E03.9 Hypothyroidism, unspecified; F17.210 Nicotine dependence, cigarettes, uncomplicated; Z86.16 Personal history of COVID-19; Z88.5 Allergy status to narcotic agent; Z79.899 Other long term (current) drug therapy; Z20.822 Contact with and (suspected) exposure to COVID-19
CPT/HCPCS: 36415; 71046; 71046-26; 80053; 83735; 85025; 85379; 86140; 93005; 99283; 99284-25; U0002

== ENCOUNTER 2023-04-24 14:51 | Emergency (ER) | payer OTHER ==
[2023-04-24] MEDS ORDERED: Sodium Chloride 0.9% 1,000 ML IV SCH (15:15)
[2023-04-24] MEDS ORDERED: Sodium Chloride 0.9% 10 ML Syringe FLUSH PRN (15:46)
[2023-04-24 15:55] LABS: BASOPHILS ABSOLUTE AUTO 0.1 K/mm3 (0.0-0.2); BASOPHILS PERCENT AUTO 0.7 % (0.0-1.0); EOSINOPHILS PERCENT AUTO 0.4 % (0.0-6.0); HEMATOCRIT 41.2 % (37.0-47.0); HEMOGLOBIN 13.7 gm/dl (12.0-16.0); IMMATURE GRAN ABSOLUTE AUTO 0.02 K/mm3 (0.00-0.05); IMMATURE GRAN PERCENT AUTO 0.3 % (0.0-0.4); LYMPHOCYTES ABSOLUTE AUTO 1.8 K/mm3 (1.0-4.8); LYMPHOCYTES PERCENT AUTO 25.1 % (24.0-44.0); MEAN CORPUSCULAR HEMOGLOBIN 29.7 pg (28.0-32.0); MEAN CORPUSCULAR HGB CONC 33.3 g/dl (32.0-36.0); MEAN CORPUSCULAR VOLUME 89.4 fl (83.0-99.0); MONOCYTES ABSOLUTE AUTO 0.6 K/mm3 (0.0-0.8); MONOCYTES PERCENT AUTO 8.7 % (0.0-8.0); NEUTROPHILS ABSOLUTE AUTO 4.6 K/mm3 (1.8-7.7); NEUTROPHILS PERCENT AUTO 64.8 % (41.0-71.0); PLATELET COUNT,PLT 226 K/mm3 (150-400); RED BLOOD CELL COUNT 4.61 M/mm3 (4.10-5.30); WHITE BLOOD CELL COUNT,WBC 7.14 K/mm3 (3.9-11.3)
[2023-04-24 16:17] LABS: APPEARANCE,URINE CLEAR (Clear); BILIRUBIN,URINE NEGATIVE (Negative); COLOR,URINE YELLOW (Yellow); GLUCOSE,URINE NEGATIVE (Negative); KETONES,URINE NEGATIVE (Negative); LEUKOCYTE ESTERASE,URINE NEGATIVE (Negative); NITRITE,URINE NEGATIVE (Negative); OCCULT BLOOD,URINE NEGATIVE (Negative); PROTEIN,URINE NEGATIVE (Negative); UROBILINOGEN,URINE 0.2 (0.2-1.0)
[2023-04-24 16:19] LABS: A/G RATIO 0.9 (1-2); ALBUMIN 3.5 g/dl (3.4-5.0); ANION GAP 11.5 (5-15); BILIRUBIN TOTAL 0.2 mg/dL (0.2-1.0); CALCIUM 8.8 mg/dL (8.5-10.1); CREATININE 0.8 mg/dL (0.55-1.02); EST CRCL DRUG DOSING (CG) 77.88 mL/min; POTASSIUM,K 3.5 mEq/L (3.5-5.1); PROTEIN TOTAL,TP 7.4 g/dl (6.4-8.2)
[2023-04-24] MEDS ORDERED: Iopamidol 612 MG/ML 100 ML Bottle IVPUSH ONE (16:30)
[2023-04-24] MEDS ORDERED: Ketorolac 30 MG/ML SDV IVPUSH ONE (17:49)
[2023-04-24 18:08] VITALS: BP 110/77; PULSE 75
== END 2023-04-24 18:06 | disposition home or self-care (01) ==
LOC: JD.ED 14:51
DX: R10.9 Unspecified abdominal pain (principal); E78.00 Pure hypercholesterolemia, unspecified; E03.9 Hypothyroidism, unspecified; Z86.16 Personal history of COVID-19; Z88.5 Allergy status to narcotic agent; Z79.899 Other long term (current) drug therapy; V89.2XXA Person injured in unspecified motor-vehicle accident, traffic, initial encounter; Y92.410 Unspecified street and highway as the place of occurrence of the external cause
CPT/HCPCS: 36415; 74177; 80053; 81003; 85025; 96361; 96374; 99284; J1885; J3490; J7030; Q9967